=== PATIENT | male | born 1950 | race Hispanic/Latino ===

== ENCOUNTER 2018-09-09 12:56 | Observation (INO) | payer MEDICARE ==
[~2018-09-09] VITALS: Ht 162.6 cm; Wt 67.4 kg
--- NOTE | 2018-09-09 12:56 | NUR ---
CALLED FROM LOBBY PT NOT IN LOBBY
--- NOTE | 2018-09-09 12:58 | NUR ---
PT RETURNS FROM BEING OUTSIDE "MAKING A PHONE CALL". PT AMBULATORY , REFUSED WC, SKIN PWD, IN NO OVERT DISTRESS. 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
[2018-09-09] MEDS ORDERED: PRAVASTATIN40 MG PO (13:13)
[2018-09-09 13:25] LABS: HEMATOCRIT 45.3 % (39.0-50.0); HEMOGLOBIN 14.6 g/dl (14.0-18.0); IMMATURE GRANULOCYTES 0.3 % (0.0-5.0); MEAN CORPUSCULAR HGB 31.3 pG CALC (26.0-32.0); MEAN CORPUSCULAR HGB CONC 32.2 g/L CALC (32.0-36.0); NEUT# 3.72 thou/uL (1.82-7.42); RED BLOOD COUNT 4.67 mill/uL (4.70-6.10)
[2018-09-09 13:54] LABS: ANION GAP 16 (6-22 (CALC)); BUN 19 mg/dL (8-23); BUN/CREATININE RATIO 26 (12-20 (CALC)); CARBON DIOXIDE 24 mmol/l (22-30); CHLORIDE 103 mmol/l (95-108); CREATININE 0.7 mg/dL (0.7-1.3); GFR > 60 ML/MIN (>=60 (CALC)); GFR FOR AFR.AMER. > 60 ML/MIN (>=60 (CALC)); POTASSIUM 3.8 mmol/l (3.5-5.1); SODIUM 139 mmol/l (137-146)
--- NOTE | 2018-09-09 13:58 | NUR ---
PT IN NO ACUTE DISTRESS, DENIES CP OR SOB AT THIS TIME. STATES HE IS ONLY DIZZY WHEN HE MOVES QUICKLY
--- NOTE | 2018-09-09 14:35 | NUR ---
PT AMBULATORY TO RESTROOM IN NO DISTRESS.
--- NOTE | 2018-09-09 14:40 | NUR ---
MD AT BEDSIDE TO DISCUSS RESULTS AND PLAN OF CARE.
--- NOTE | 2018-09-09 14:55 | NUR ---
PT DOES NOT WANT TO STAY IN THE HOSPITAL AT THIS TIME. PT HAS AGREED TO STAY IN THE HOSPITAL.
--- NOTE | 2018-09-09 14:59 | NUR ---
PT WOULD LIKE TO STAY FOR ADMISSION.
--- NOTE | 2018-09-09 15:05 | NUR ---
MD AT BEDSIDE TO DISCUSS RESULTS AND PLAN FOR ADMISSION.
--- NOTE | 2018-09-09 15:45 | NUR ---
CALL PLACED TO [facility], NURSE WILL CALL BACK FOR REPORT.
--- NOTE | 2018-09-09 15:59 | NUR ---
REPORT CALLED TO NIKOLAI PACHECO.
--- NOTE | 2018-09-09 16:05 | NUR ---
Admission Note Report Given to: NIKOLAI PACHECO Transported by: X Wheelchair Stretcher Transported with: X Nurse Transporter X Patent IV O2 X Mutuel Clerk PT TO ROOM IN STABLE CONDITION ON TELE MONITOR. PT CARE RELINQUISHED TO NIKOLAI PACHECO.
--- NOTE | 2018-09-09 16:07 | NUR ---
TRANSPORTED TO [facility] ON TELEMETRY
[2018-09-09 16:10] VITALS: BP 125/76
--- NOTE | 2018-09-09 17:04 | NUR ---
PT ARRIVED TO FLOOR VIA STRETCHER ACCOMPANIED BY ER STAFF IN STABLE CONDITION; PT AMBULATORY WITH STEADY GAIT; WT AND VITALS OBTAINED BY SALES REPRESENTATIVE FACILITY SERVICES; PT A/O X4; TELE IN PLACE READING SB 59 PER ED; #20G RAC, FLUSHED WELL; MEDICATED PER ORDER; C/O OF NO PAIN; CALL [facility]A IN REACH; SAFETY PRECAUTION REINFORCE;
--- NOTE | 2018-09-09 18:00 | NUR ---
PT SITTING UP IN BED WATCHING TV; CALL MORA IN REACH. URINAL AT BEDSIDE; VOICE NO CONCERNS;
--- NOTE | 2018-09-09 20:15 | NUR ---
PT. SITTING UP IN BED WITH NO DISTRESS NOTED. DENIES NEEDS/PAIN. ASSESSMENT COMPLETED. CODEY HOSE PLACED TO BLE. PO FLUIDS OFFERED. ENCOURAGED TO CALL FOR ANY NEEDS. INSTRUCTED PT. IF HE FELT DIZZY TO CALL PRIOR TO GETTING OOB AND VERBALIZES UNDERSTANDING. CALL LIGHT IS IN REACH. WILL CONTINUE TO MONITOR.
[2018-09-09 20:38] VITALS: BP 107/60
--- NOTE | 2018-09-09 22:20 | NUR ---
PT. RESTING IN BED WITH EYES CLOSED, AROUSES EASILY. NO DISTRESS NOTED. URINAL EMPTIED. DENIES NEEDS/PAIN. ENCOURAGED TO CALL FOR ANY NEEDS. CALL LIGHT IS IN REACH.
[2018-09-09 23:37] VITALS: BP 110/67
--- NOTE | 2018-09-09 23:37 | NUR ---
PERFORMING ARTS TECHNICIANS IN AT BEDSIDE OBTAINING VS. VSS. NO DISTRESS NOTED. DENIES NEEDS/PAIN. CALL LIGHT IS IN REACH.
--- NOTE | 2018-09-10 01:45 | NUR ---
PT. RESTING IN BED WITH NO DISTRESS NOTED. RESP. EVEN AND UNLABORED. EYES CLOSED. CALL LIGHT IS IN REACH.
[2018-09-10 05:10] VITALS: BP 97/64
--- NOTE | 2018-09-10 05:14 | NUR ---
PT. RESTING IN BED WITH NO DISTRESS NOTED. DENIES NEEDS/PAIN. ENCOURAGED TO CALL FOR ANY NEEDS. CALL LIGHT IS IN REACH.
[2018-09-10 06:22] LABS: HEMATOCRIT 45.4 % (39.0-50.0); HEMOGLOBIN 14.6 g/dl (14.0-18.0); IMMATURE GRANULOCYTES 0.5 % (0.0-5.0); MEAN CELL VOLUME 97.4 fL CALC (80.0-100.0); MEAN CORPUSCULAR HGB 31.3 pG CALC (26.0-32.0); MEAN CORPUSCULAR HGB CONC 32.2 g/L CALC (32.0-36.0); NEUT# 3.33 thou/uL (1.82-7.42); RED BLOOD COUNT 4.66 mill/uL (4.70-6.10); RED CELL DISTRI WIDTH 12.2 % (11.5-15.5)
[2018-09-10 06:44] LABS: ALBUMIN 3.9 g/dL (3.2-5.0); ALKALINE PHOSPHATASE 66 u/l (38-126); ANION GAP 13 (6-22 (CALC)); BILIRUBIN, TOTAL 0.9 mg/dL (0.0-1.4); BUN 20 mg/dL (8-23); BUN/CREATININE RATIO 24 (12-20 (CALC)); CALCULATED LDLCHOLESTEROL 157 mg/dL (62-129 (CALC)); CARBON DIOXIDE 25 mmol/l (22-30); CHLORIDE 107 mmol/l (95-108); CHOLESTEROL HDL RATIO 5.4 (<4.4 (CALC)); CREATININE 0.8 mg/dL (0.7-1.3); GFR > 60 ML/MIN (>=60 (CALC)); GFR FOR AFR.AMER. > 60 ML/MIN (>=60 (CALC)); HDL CHOLESTEROL 42 mg/dL (>=40); MAGNESIUM 2.1 mg/dL (1.6-2.3); POTASSIUM 4.4 mmol/l (3.5-5.1); SGOT/AST 24 u/l (19-48); SODIUM 140 mmol/l (137-146); TOTAL CHOLESTEROL 223 mg/dl (0-199); TOTAL PROTEIN 6.7 g/dL (6.3-8.2); TOTAL TRIGLYCERIDES 124 mg/dl (30-149); VLDL CHOLESTROL 25 mg/dl (4-45 (CALC))
--- NOTE | 2018-09-10 07:00 | NUR ---
SHIFT CHANGE REPORT, PT AWAKE ALERT AND ORIENTED, DENIES PAIN/DISCOMFORT, TELE MONITOR IN PLACE, ALL NEEDS ADDRESSED.
[2018-09-10 08:17] VITALS: BP 107/63
[2018-09-10 10:50] VITALS: BP 113/68
--- NOTE | 2018-09-10 12:00 | NUR ---
DR TEJEDA ROUNDED, EXPLAINED PLAN OF CARE TO D/C HOME TODAY, PT STATED HE FEELS MUCH BETTER, WILL CONTINUE TO MONITOR.
[2018-09-10 15:35] VITALS: BP 113/73
[2018-09-10] MEDS ORDERED: PROTONIX40 M2 PO (15:38)
--- NOTE | 2018-09-10 15:46 | NUR ---
Discharge instructions given. Patient verbalizes understanding of same. Discharged in good condition via Ambulatory to Home with family. All belongings sent with pt.
== END 2018-09-10 15:40 | disposition home or self-care (01) ==
LOC: ED 12:56 → ED-I 14:51 → ED 15:15 → MS2 15:16
PROVIDERS: Family Medicine; ADMIT Internal Medicine Nephrology; ATTEND Internal Medicine Nephrology
DX: R07.9 Chest pain, unspecified (principal); R42 Dizziness and giddiness; I95.9 Hypotension, unspecified; H93.8X2 Other specified disorders of left ear; E78.5 Hyperlipidemia, unspecified
CPT/HCPCS: G0378; J1650